=== PATIENT | female | born 2005 | race Caucasian/White ===

== ENCOUNTER 2023-01-01 07:02 | Day surgery (SDC) | payer MEDICAID ==
[~2023-01-01] VITALS: Ht 170.2 cm; Wt 98.4 kg
[~2023-01-01 07:02] MED LIST: CLINDAMYCIN PHOS 600 MG/ D5W 50 ML PREMIX IV ONE
[2023-01-01 07:21] LABS: HCG,QUAL RESULT NEGATIVE (NEGATIVE)
[2023-01-01] MEDS ORDERED: NS IRRIG SOLN 1000 ML IR ONE (09:45)
[2023-01-01] MEDS ORDERED: ROCURONIUM BROMIDE 10 MG/ML (ZEMURON) ONE (09:45)
[2023-01-01] MEDS ORDERED: ONDANSETRON HCL 4 MG/2 ML VIAL ONE (09:45)
[2023-01-01] MEDS ORDERED: NS 1000 ML IV.SOLN IV ONE (09:45)
[2023-01-01] MEDS ORDERED: GLYCOPYRROLATE 0.2 MG/ML VIAL ONE (09:45)
[2023-01-01] MEDS ORDERED: MIDAZOLAM HCL 2 MG/2 ML VIAL (VERSED) ONE (09:45)
[2023-01-01] MEDS ORDERED: PROPOFOL 200MG/ 20ML VIAL (DIPRIVAN) IV ONE (09:45)
[2023-01-01] MEDS ORDERED: METOCLOPRAMIDE HCL 10 MG/2 ML VIAL ONE (09:45)
[2023-01-01] MEDS ORDERED: fentaNYL CITRATE/PF 100 MCG/2 ML AMP ONE (09:45)
[2023-01-01] MEDS ORDERED: BACITRACIN ZINC 15 GM TOPICAL OINTMENT TP ONE (09:45)
[2023-01-01] MEDS ORDERED: LR 1,000 ML IV.SOLN IV ONE (09:45)
[2023-01-01] MEDS ORDERED: SEVOFLURANE 15 MIN GAS INH ONE (09:45)
[2023-01-01] MEDS ORDERED: NEOSTIGMINE METHYLSULFATE 1 MG/ML, 10 ML VIAL ONE (09:45)
[2023-01-01] MEDS ORDERED: LIDOCAINE/EPI MPF 1%1:200000 30 ML VIAL ONE (09:45)
[2023-01-01] MEDS ORDERED: ACETAMINOPHEN I.V. 1000 MG 100 ML IV ONE ×2 (11:30→11:39)
[2023-01-01] MEDS ORDERED: HYDROmorphone 1 MG/ML INJ. CARTRIDGE IVP PRN (11:45)
[2023-01-01] MEDS ORDERED: ONDANSETRON HCL 4 MG/2 ML VIAL IVP PRN ×2 (11:45→13:30)
[2023-01-01] MEDS ORDERED: METOCLOPRAMIDE HCL 10 MG/2 ML VIAL IVP PRN (11:45)
[2023-01-01] MEDS ORDERED: MEPERIDINE HCL/PF 25 MG/ML DISP.SYRIN IVP PRN (11:45)
[2023-01-01] MEDS ORDERED: HYDROmorphone 1 MG/ML INJ. CARTRIDGE ONE (12:42)
[2023-01-01] MEDS ORDERED: ONDANSETRON 4 MG ODT TAB PO PRN (13:30)
[2023-01-01] MEDS ORDERED: HYDROcodone/ACETAMIN 5-325 MG TAB (NORCO/ VICODIN) PO PRN (13:30)
[2023-01-01] MEDS ORDERED: ACETAMINOPHEN 500 MG TABLET PO PRN (13:30)
[2023-01-01 17:42] VITALS: BP_SYST 134
== END 2023-01-01 16:05 | disposition home or self-care (01) ==
LOC: SDS 07:02 → SMU 07:07 → SDS 16:05
PROVIDERS: ATTEND Otolaryngology
DX: J32.4 Chronic pansinusitis (principal); J33.9 Nasal polyp, unspecified; J33.0 Polyp of nasal cavity; Z20.822 Contact with and (suspected) exposure to COVID-19
CPT/HCPCS: 87081; 31296; 31267; 31257; 84703; 36415; 88304; 87426; J3490 ×2; J2765; J3465; J2405; J2704; J3010; J1170; J7120; J7030; J0131; J2710; C1726

== ENCOUNTER 2024-05-20 22:43 | Emergency (ER) | payer MEDICAID ==
[~2024-05-20] VITALS: Ht 170.2 cm; Wt 105.7 kg
[2024-05-20 22:48] VITALS: BP_SYST 141; PULSE 99; RESP 20; TEMP 98.2; O2SAT 96
[2024-05-20] MEDS: KETOROLAC TROMETHAMINE 60 MG/2 ML VIAL IM ONE (23:33)
[2024-05-21] MEDS ORDERED: NAPR-1172 PO (00:19)
== END 2024-05-21 00:22 | disposition home or self-care (01) ==
LOC: SED 22:43
DX: M53.3 Sacrococcygeal disorders, not elsewhere classified (principal); Z79.899 Other long term (current) drug therapy
CPT/HCPCS: 99283; 72220; 81025; 96372; J1885